=== PATIENT | male | born 1965 | race American Indian/Alaskan Native ===

== ENCOUNTER 2017-02-09 03:16 | Inpatient (IN) | payer MEDICAID, MEDICARE ==
[2017-02-09 03:16] VITALS: BMI 44.8
[2017-02-09 03:19] VITALS: O2SAT 98
--- NOTE | 2017-02-09 03:27 | ED PDOC ---
Psych Transfer Clearance - Clearance Statement Clearance Statement: Reviewed vital signs, lab results and transfer papers. Patient clinically stable for psychiatric admission.
[2017-02-09] MEDS ORDERED: DiphenhydrAMINE 50 mg/ml Inj IM PRN (03:56)
[2017-02-09] MEDS ORDERED: Alum-Mag Hydrox-Simethicone Susp (30 mL) PO PRN (03:56)
[2017-02-09] MEDS ORDERED: Magnesium Hydroxide Susp 30 ml UD PO PRN (03:56)
--- NOTE | 2017-02-09 12:04 | PCM.PSYCH ---
Initial Psychiatric Evaluation - Initial Psychiatric Evaluation Type of Admission: Voluntary Legal Status: Capacity Chief Complaint (in patient's own words): i got kicked out of my [facility] Patient's Reaction to Hospitalization: cooperative History of Present Illness and Precipitating Events: 51 yo male, history of cocaine dependence per chart (pt denies) pt states he is now homeless. states he has bipolar disorder. states he wanted to jump into traffic because he lost his housing. vague about why he lost the housing but admits he had an argument with staff there. he is now denying that he wants to harm himself. states he is anxious about his housing. states he used to see "a little green alien, but that went away." he denies recent drug use and his uds is negative. he is calm, sleeping in chair on the unit. he is more comfortable talking about past events and steers conversation to past events. focused on making sure his girlfriend knows he is in the hospital. states he was in longterm in [facility] for 4 months a few years ago for not paying child support. Current Medications: Active Medications Generic Name Dose Route Start Last Admin Trade Name Freq PRN Reason Stop Dose Admin Acetaminophen 650 mg 02/09/17 03:56 Tylenol 325mg Tab PO Q4 PRN headache,pain 1-7,dizziness Al Hydrox/Mg Hydrox/Simethicone 30 ml 02/09/17 03:56 Maalox Plus 30 Ml PO Q4 PRN Dyspepsia Diphenhydramine HCl 50 mg 02/09/17 03:56 Benadryl IM Q6 PRN Extrapyramidal S/S Unable PO Diphenhydramine HCl 50 mg 02/09/17 03:56 Benadryl PO Q6 PRN Extrapyramidal Symptoms Diphenhydramine HCl 50 mg 02/09/17 04:03 Benadryl PO HS PRN Sleep Haloperidol 5 mg 02/09/17 03:56 Haldol PO Q4 PRN Agitation Haloperidol Lactate 5 mg 02/09/17 03:56 Haldol IM Q4 PRN Agitation, Unable to Take PO Lorazepam 2 mg 02/09/17 03:56 Ativan IM Q4 PRN Anxiety/Agitation,Unable PO Lorazepam 2 mg 02/09/17 04:30 Ativan PO Q4 PRN agitation/anxiety Magnesium Hydroxide 30 ml 02/09/17 03:56 Milk Of Magnesia PO HS PRN Constipation states he takes celexa and buspar. states he does not take other medications. Past Psychiatric History - Past Psychiatric History Previous Treatment History: Inpatient Prior Professional Help: [facility] in october, reports being in [facility] , [facility], etc. Prior Psychiatric Treatment: states he does not like current treatment providers History of Abuse: denies History of ETOH/Drug Use: per chart hx of alcohol, cocaine dependence. uds negative. states he does not smoke cigarettes. denies recent alcohol use out side of 1 beer over a week ago. History of Family Illness: denies Pertinent Medical Hx (Current Medical&Sleep Prob, Allergies): Allergies Allergy/AdvReac Type Severity Reaction Status Date / Time No Known Allergies Allergy Verified 11/13/16 00:12 busPIRone [Buspar] 10 mg PO BID 10/13/16 Apixaban [Eliquis] 5 mg PO DAILY 11/10/16 Citalopram [celEXA] 20 mg PO DAILY #30 tab 11/19/16 obesity, htn, ?dvts Review of Systems - Psychiatric Psychiatric: As Per HPI Mental Status Examination - Personal Presentation Personal Presentation: Looks stated age, Obese - Affect Affect: Broad - Motor Activity Motor Activity: Calm - Reliability in Providing Information Reliability in Providing Information: Fair - Speech Speech: Organized, Irrelevant (gives irrelevant details) - Mood Mood: Anxious - Formal Thought Process Formal Thought Process: No Impairment - Obsessions/Compulsions Obsessions: No Compulsions: No - Cognitive Functions Orientation: Person, Place, Situation, Time Sensorium: Alert Attention/Concentration: Attentive Abstract Thinking: [place] Estimate of Intelligence: Average Judgement: Intact, as evidence by: Insight regarding need for hospitalization Memory: Recent intact, as evidence by: Ability to recall events of the day, Remote intact, as evidenced by: Abilit to recall sig. life events - Risk Risk: Suicidal (denies suicidal thoughts here), Diminished functioning - Strength & Assets Inventory Strength & Assets Inventory: Intelligence - Limitations Limitations: Other (housing) DSM 5 DX - DSM 5 DSM 5 Diagnosis: bipolar disorder, mixed history of cocaine abuse - Recommended/Plan of Treatment Treatment Recommendations and Plan of Treatment: admit to [facility] for safety and observation gather collateral information provide supportive therapy adjust medications- restart celexa and neurontin as he was taking these in october. hospitalist consult- regarding htn, obesity, ? dvts? disposition planning Projected ELOS: 3-5 days Prognosis: fair - Smoking Cessation Smoking Cessation Initiated: No Reason for not providing: does not smoke
--- NOTE | 2017-02-09 15:04 | CP.PCM.CON ---
History of Present Illness - History of Present Illness History of Present Illness: Hospitalist Consult H&P (Patient was seen and examined at 2:45 PM 02/09/17 [id number] with Psychiatry Nurse) 51 year old male who was admitted to the In-Patient Psychiatry Unit at [facility] for SI secondary to losing his housing and becoming homeless. Currently upon FULL ROS there is NO chest pain, NO palpitations, NO SOB/Cough/ Wheezing,NO dysphagia/odynophagia, NO abdominal pain, NO n/v/d/c, NO black/ bloody stools, NO burning/pain with urination, NO lightheadedness/dizziness, NO paresthesias, NO edema, NO new changes in vision/eye pain, NO new changes in hearing/ear pain PMHx: Cocaine Abuse, Bipolar Disorder, HTN PSHx: Denies ALL: Denies Meds: Please see list Social Hx: Homeless, (+) Tobacco: quit 7 years ago 15 cig/day, NO alcohol, Denies Illicit Drugs (patient has a history of Cocaine use as per records) Physical Exam: HEENT: NCA, EOMI, PERRLA, NO pharyngeal erythema/exudate, NO thyromegaly, NO cervical/supraclavicular/submandibular lymphadenopathy, Oral Mucosa and Nasal Turbinates are moist Cardio: NS1 and NS2, NO M/R/G Resp: CTA B/L, NO R/R/W GI: BSx4, Soft, NT,Central Obesity therefore Liver and Spleen could not be palpated, NO guarding/rebound tenderness Ext: Pulses are strong and equal, NO edema, Capillary Refill is 2 seconds Neuro: CN II through XII are grossly intact Assessment and Plan: 1). HTN Patient states he has a history of high blood pressure He is currently not on any medication Vitals show normal B/P Monitor for now 2). Suicide Ideation Treatment as per Psychiatry 3). Bipolar Disorder Treatment as per Psychiatry 4). Cocaine Abuse Treatment as per Psychiatry Past Patient History - Past Social History Smoking Status: Former Smoker - CARDIAC Hx Hypertension: Yes - PULMONARY Hx Tuberculosis: No - NEUROLOGICAL HX Cerebrovascular Accident: No Hx Seizures: No - HEENT Hx HEENT Problems: No - RENAL Hx Chronic Kidney Disease: No - ENDOCRINE/METABOLIC Hx Endocrine Disorders: No - HEMATOLOGICAL/ONCOLOGICAL Hx Cancer: No Hx Human Immunodeficiency Virus (HIV): No - INTEGUMENTARY Hx Dermatological Problems: No - MUSCULOSKELETAL/RHEUMATOLOGICAL Hx Musculoskeletal Disorders: No - GASTROINTESTINAL Hx Gastroesophageal Reflux: Yes - GENITOURINARY/GYNECOLOGICAL Hx Sexually Transmitted Disorders: No - PSYCHIATRIC Hx Depression: Yes Hx Substance Use: No - SURGICAL HISTORY Hx Surgeries: No - ANESTHESIA Hx Anesthesia: No Meds Allergies/Adverse Reactions: Allergies Allergy/AdvReac Type Severity Reaction Status Date / Time No Known Allergies Allergy Verified 11/13/16 00:12 - Medications Medications: Current Medications Acetaminophen (Tylenol 325mg Tab) 650 mg PO Q4 PRN PRN Reason: headache,pain 1-7,dizziness Al Hydrox/Mg Hydrox/Simethicone (Maalox Plus 30 Ml) 30 ml PO Q4 PRN PRN Reason: Dyspepsia Citalopram Hydrobromide (Celexa) 20 mg PO DAILY [facility] Last Admin: 02/09/17 12:54 Dose: 20 mg Diphenhydramine HCl (Benadryl) 50 mg IM Q6 PRN PRN Reason: Extrapyramidal S/S Unable PO Diphenhydramine HCl (Benadryl) 50 mg PO Q6 PRN PRN Reason: Extrapyramidal Symptoms Diphenhydramine HCl (Benadryl) 50 mg PO HS PRN PRN Reason: Sleep Gabapentin (Neurontin) 300 mg PO TID [facility] Last Admin: 02/09/17 12:54 Dose: 300 mg Haloperidol (Haldol) 5 mg PO Q4 PRN PRN Reason: Agitation Haloperidol Lactate (Haldol) 5 mg IM Q4 PRN PRN Reason: Agitation, Unable to Take PO Lorazepam (Ativan) 2 mg IM Q4 PRN PRN Reason: Anxiety/Agitation,Unable PO Lorazepam (Ativan) 2 mg PO Q4 PRN PRN Reason: agitation/anxiety Magnesium Hydroxide (Milk Of Magnesia) 30 ml PO HS PRN PRN Reason: Constipation Results - Vital Signs Recent Vital Signs: Last Vital Signs Temp 98 F 02/09/17 09:00 Pulse 74 02/09/17 09:00 Resp 20 02/09/17 09:00 BP 126/81 02/09/17 09:00 Pulse Ox 98 02/09/17 03:17
[2017-02-10 08:46] LABS: THYROID STIMULATING HORMONE 0.77 mIU/ML (0.46-4.68)
--- NOTE | 2017-02-10 11:38 | PCM.PYCHPN ---
Psychiatric Progress Note - Psychiatric Progress Note Patient seen today, length of contact: discussed with team Patient Chief Complaint: i am ok Problems Identified/Issues Discussed: no complaints of medication side effects. up in milieu. no agitation. no conflicts with peers. no episodes of panic. Medication Change: No Medical Record Reviewed: No Mental Status Examination - Cognitive Function Orientation: Person, Place, Situation, Time Memory: Intact Attention: WNL Concentration: WNL Association: WNL Fund of Knowledge: [facility] Decription of patient's judgement and insights: fair - Mood Mood: Anxious - Affect Affect: Broad - Speech Speech: Appropriate - Formal Thought Process Formal Thought Process: No Impairment Psychotic Thoughts and Behaviors: denies a/v hallucinations - Suicidal Ideation Suicidal Ideation: No - Homicidal Ideation Homicidal Ideation: No Goal/Treatment Plan - Goal/Treatment Plan Need for Continued Stay: Remain at risks for inpatient hospitalization, Severe functional impairment Progress Toward Problem(s) and Goals/Treatment Plan: depression moderate substance abuse history no medication changes t/c increasing neurontin if needed disposition planning- pt moves from hospital to hospital and has housing issues that seem to be beyond the scope of this hospitalization Estimated Date of D/C: 02/12/17
--- NOTE | 2017-02-11 11:56 | PCM.PYCHPN ---
Psychiatric Progress Note - Psychiatric Progress Note Patient seen today, length of contact: in treatment team Patient Chief Complaint: i feel ok Problems Identified/Issues Discussed: no complaints of medication side effects. social with peers. concerned with housing. states mood is improving. sleep is improved. Medication Change: No Medical Record Reviewed: No Mental Status Examination - Cognitive Function Orientation: Person, Place, Situation, Time Memory: Intact Attention: WNL Concentration: WNL Association: WNL Fund of Knowledge: [facility] Decription of patient's judgement and insights: fair - Mood Mood: Anxious - Affect Affect: Broad - Speech Speech: Appropriate - Formal Thought Process Formal Thought Process: No Impairment Psychotic Thoughts and Behaviors: denies a/v hallucinations - Suicidal Ideation Suicidal Ideation: No - Homicidal Ideation Homicidal Ideation: No Goal/Treatment Plan - Goal/Treatment Plan Need for Continued Stay: Remain at risks for inpatient hospitalization, Severe functional impairment Progress Toward Problem(s) and Goals/Treatment Plan: depression moderate substance abuse history no medication changes refer pt to [facility] services Estimated Date of D/C: 02/12/17
--- NOTE | 2017-02-12 10:47 | PCM.PYCHPN ---
Psychiatric Progress Note - Psychiatric Progress Note Patient seen today, length of contact: in treatment team Patient Chief Complaint: i am okay Problems Identified/Issues Discussed: no complaints of medication side effects. social with peers. concerned with housing. states mood is now better. sleep is improved. Medication Change: No Medical Record Reviewed: No Mental Status Examination - Cognitive Function Orientation: Person, Place, Situation, Time Memory: Intact Attention: WNL Concentration: WNL Association: WNL Fund of Knowledge: [facility] Decription of patient's judgement and insights: fair - Mood Mood: Anxious - Affect Affect: Broad - Speech Speech: Appropriate - Formal Thought Process Formal Thought Process: No Impairment Psychotic Thoughts and Behaviors: denies a/v hallucinations - Suicidal Ideation Suicidal Ideation: No - Homicidal Ideation Homicidal Ideation: No Goal/Treatment Plan - Goal/Treatment Plan Need for Continued Stay: Remain at risks for inpatient hospitalization, Severe functional impairment Progress Toward Problem(s) and Goals/Treatment Plan: depression moderate substance abuse history no medication changes refer pt to [facility] services Estimated Date of D/C: 02/12/17
--- NOTE | 2017-02-13 11:10 | PCM.PYCHPN ---
Psychiatric Progress Note - Psychiatric Progress Note Patient seen today, length of contact: discussed with team Patient Chief Complaint: i feel better Problems Identified/Issues Discussed: no complaints of medication side effects. social with peers. states he is no longer anxious. still focused on housing. no use of ativan. Medication Change: No Medical Record Reviewed: No Mental Status Examination - Cognitive Function Orientation: Person, Place, Situation, Time Memory: Intact Attention: WNL Concentration: WNL Association: WN Fund of Knowledge: [facility] Decription of patient's judgement and insights: fair - Mood Mood: Anxious - Affect Affect: Broad - Speech Speech: Appropriate - Formal Thought Process Formal Thought Process: No Impairment Psychotic Thoughts and Behaviors: denies a/v hallucinations - Suicidal Ideation Suicidal Ideation: No - Homicidal Ideation Homicidal Ideation: No Goal/Treatment Plan - Goal/Treatment Plan Need for Continued Stay: Remain at risks for inpatient hospitalization, Severe functional impairment Progress Toward Problem(s) and Goals/Treatment Plan: depression moderate substance abuse history no medication changes pt rejected by [facility] discharge tomorrow Estimated Date of D/C: 02/14/17
[2017-02-14 08:41] VITALS: BP 143/82; PULSE 84; RESP 18
[2017-02-14 09:20] VITALS: TEMP 97.7
--- NOTE | 2017-02-14 11:19 | PCM.PYCHDC ---
Mental Status Examination - Mental Status Examination Orientation: Person, Place, Situation, Time Memory: Intact Mood: Neutral Affect: Broad Speech: Appropriate Attention: WNL Concentration: WNL Association: WNL Fund of Knowledge: WNL Formal Thought Process: No Impairment Description of patient's judgement and insight: fair Psychotic Thoughts and Behaviors: denies a/v hallucinations Suicidal Ideation: No Current Homicidal Ideation?: No Plan: pt denies any suicidal or homicidal thoughts/plans or intention to harm self Discharge Summary - Discharge Note Reason for Hospitalization: pt was suicidal in context of losing housing. Psychiatric History (includes Medical, Family, Personal Hx): history of multiple recent hospitalizations Consultations:: List each consultation separately and include: 1. Reason for request. 2. Findings. 3. Follow-up Consultations: seen by the hospitalist Summary of Hospital Course include:: 1. Description of specific treatment plan utilized for patients during their course of treatmen. 2. Summarize the time- course for resolution of acute symptoms and/or regressed behaviors. 3. Describe issues identified and worked on during hospitalization. 4. Describe medication utilized. 5. Describe medical problems identified and treated. 6. Reassessment of suicide risk Summary of Hospital Course: 51 yo male, history of cocaine dependence per chart (pt denies) pt states he is now homeless. states he has bipolar disorder. states he wanted to jump into traffic because he lost his housing. vague about why he lost the housing but admits he had an argument with staff there. he is now denying that he wants to harm himself. states he is anxious about his housing. states he used to see "a little green alien, but that went away." he denies recent drug use and his uds is negative. he is calm, sleeping in chair on the unit. he is more comfortable talking about past events and steers conversation to past events. focused on making sure his girlfriend knows he is in the hospital. states he was in senior care in [facility] for 4 months a few years ago for not paying child support. hospital course pt was admitted to [facility] and oriented to the unit. pt was seen by the hospitalist. pt was seen by the treatment team. pt was started on his previous medications. he attended groups. he was social with peers. he was primarily seeking help with housing. he was referred to the [facility] program which rejected his application. pt was denying suicidal or homicidal thoughts at time of discharge. - Final Diagnosis (DSM 5) Condition upon Discharge: GOOD DSM 5: major depression, recurrent moderate Disposition: HOME/ ROUTINE Follow-up Treatment Plan: follow up with aftercare as directed take medications as prescribed do not use alcohol, tobacco or other illicit substances call 911 if any suicidal or homicidal thoughts Prescriptions/Medication Reconciliation: Citalopram [celEXA] 20 mg PO DAILY #30 tab Gabapentin [Neurontin] 300 mg PO TID #90 cap - Smoking Cessation Smoking Cessation Medication prescribed: No Reason for not providing: declined - Antipsychotic Medications Pt discharged on 2 or more routine antipsychotic medications: No
== END 2017-02-14 14:53 | disposition home or self-care (01) | DRG 885 ==
LOC: H.ER 03:16 → H.PSYCH 03:26
PROVIDERS: ADMIT Psychiatry & Neurology Psychiatry; ATTEND Psychiatry & Neurology Psychiatry
PROC: GZ51ZZZ Individual Psychotherapy, Behavioral (ICD-10-PCS; 2017-02-09)
PROC: GZHZZZZ Group Psychotherapy (ICD-10-PCS; principal; 2017-02-11)
DX: F33.1 Major depressive disorder, recurrent, moderate (principal); F31.60 Bipolar disorder, current episode mixed, unspecified; R45.851 Suicidal ideations; I10 Essential (primary) hypertension; F14.10 Cocaine abuse, uncomplicated; K21.9 Gastro-esophageal reflux disease without esophagitis; Z59.0 Homelessness; Z87.891 Personal history of nicotine dependence

== ENCOUNTER 2017-02-26 17:49 | Emergency (ER) | payer MEDICARE ==
[2017-02-26 17:50] VITALS: BMI 44.8
[2017-02-26 18:06] VITALS: BP 147/75; PULSE 95; RESP 16; TEMP 98; O2SAT 99
--- NOTE | 2017-02-26 18:32 | ED PDOC ---
HPI: Psych/Substance Abuse Time Seen by Provider: 02/26/17 18:30 Chief Complaint (Nursing): Psychiatric Evaluation Chief Complaint (Provider): CRISIS EVAL History Per: Patient (51 Y/O MALE UNDOMICILED HERE FOR EVALUATION OF HEARING VOICES. PATIENT STATES HE WAS ON CELEXA/BUSPAR BUT STOPPED X FEW MONTHS. DENIES ANY SI/HI. REQUEST ADMISSION FOR PSYCH EVAL. HAS STOPPED ELIQUIS FOR DVT AND NOTES SWELLING IN LOWER EXTREMITIES.) Past Medical History Reviewed: Historical Data, Nursing Documentation, Vital Signs Vital Signs: Last Vital Signs Temp 98.0 F 02/26/17 18:02 Pulse 95 H 02/26/17 18:02 Resp 16 02/26/17 18:02 BP 147/75 02/26/17 18:02 Pulse Ox 99 02/26/17 18:02 - Medical History PMH: Bipolar Disorder, Depression, HTN Denies: Diabetes, Hepatitis, HIV, Chronic Kidney Disease, Seizures, Sexually Transmitted Disease - Family History Family History: States: Unknown Family Hx - Immunization History Hx Tetanus Toxoid Vaccination: No Hx Influenza Vaccination: Yes Hx Pneumococcal Vaccination: No - Home Medications Home Medications: Ambulatory Orders Medication Instructions Recorded Citalopram [celEXA] 20 mg PO DAILY #30 tab 02/14/17 Gabapentin [Neurontin] 300 mg PO TID #90 cap 02/14/17 - Allergies Allergies/Adverse Reactions: Allergies Allergy/AdvReac Type Severity Reaction Status Date / Time No Known Allergies Allergy Verified 02/26/17 18:02 Review of Systems ROS Statement: Except As Marked, All Systems Reviewed And Found Negative Physical Exam - Reviewed Nursing Documentation Reviewed: Yes Vital Signs Reviewed: Yes - Physical Exam Appears: Positive for: Well, Non-toxic, No Acute Distress Head Exam: Positive for: ATRAUMATIC, NORMAL INSPECTION, NORMOCEPHALIC Skin: Positive for: Normal Color, Warm, DRY Eye Exam: Positive for: EOMI, Normal appearance, PERRL ENT: Positive for: Normal ENT Inspection Neck: Positive for: Normal, Painless ROM Cardiovascular/Chest: Positive for: Regular Rate, Rhythm Respiratory: Positive for: CNT, Normal Breath Sounds Gastrointestinal/Abdominal: Positive for: Normal Exam, Bowel Sounds, Soft Back: Positive for: Normal Inspection Extremity: Positive for: Normal ROM, Other (MILD SWELLING NOTED BILATERAL LOWER EXTREMITIES.) Neurologic/Psych: Positive for: Alert, Oriented - Laboratory Results Result Diagrams: 02/26/17 18:35 02/26/17 18:35 - ECG O2 Sat by Pulse Oximetry: 99 - Progress ED Course And Treament: ULTRASOUND LOWER EXTREMITY: BILATERAL POPLITEAL CYST; NO DVT NOTED. Disposition - Clinical Impression Clinical Impression: Hearing voices - Patient ED Disposition Is Patient to be Admitted: Transfer of Care - Disposition Disposition: Transfer of Care Disposition Time: 20:00 Condition: FAIR Patient Signed Over To: Lila Avalos Handoff Comments: CRISIS EVAL;
[2017-02-26 18:43] LABS: BASO # 0.2 K/uL (0.0-0.2); BASO % 1.8 % (0.0-2.0); EOS # 0.6 K/uL (0.0-0.7); EOS % 5.7 % (0.0-4.0); HEMATOCRIT 38.8 % (35.0-51.0); LYMPH # 3.1 K/uL (1.0-4.3); LYMPH % 27.5 % (20.0-40.0); MEAN CELL VOLUME 94.7 fl (80.0-94.0); MEAN CORPUSCULAR HEMOGLOBIN 30.8 pg (27.0-31.0); MEAN CORPUSCULAR HGB CONC 32.5 g/dL (33.0-37.0); MEAN PLATELET VOLUME 8.5 fl (7.2-11.7); MONO # 1.1 K/uL (0.0-0.8); MONO % 9.5 % (0.0-10.0); NEUT # 6.2 K/uL (1.8-7.0); NEUT % 55.5 % (50.0-75.0); RED CELL DISTRIBUTION WIDTH 13.7 % (11.5-14.5); WHITE BLOOD COUNT 11.2 K/uL (4.8-10.8)
[2017-02-26 18:56] LABS: ALB/GLOB RATIO 1.2 (1.0-2.1); ALCOHOL SERUM < 10 mg/dl (0-10); ALKALINE PHOSPHATASE 64 U/L (38-126); ALT/SGPT 31 U/L (21-72); AST/SGOT 22 U/L (17-59); BILIRUBIN,TOTAL 0.6 mg/dl (0.2-1.3); BLOOD UREA NITROGEN 21 mg/dl (9-20); CALCIUM 9.3 mg/dL (8.4-10.2); CARBON DIOXIDE 25 mmol/L (22-30); CHLORIDE 106 mmol/L (98-107); GFR AFRICAN-AMERICAN > 60; GLUCOSE,RANDOM 118 mg/dL (75-110); POTASSIUM 3.7 MMOL/L (3.6-5.0); SODIUM 143 mmol/l (132-148); TOTAL PROTEIN 8.2 G/DL (6.3-8.2)
[2017-02-26 18:58] LABS: PARTIAL THROMBOPLASTIN TIME 31.6 Seconds (25.6-37.1)
[2017-02-26 19:03] LABS: RBC URINE 2 /hpf (0-3); URINE BACTERIA RARE (<OCC); URINE BILIRUBIN NEGATIVE (NEGATIVE); URINE BLOOD NEGATIVE (NEGATIVE); URINE COLOR YELLOW (YELLOW); URINE GLUCOSE (UA) NEG (Normal); URINE KETONE NEGATIVE (NEGATIVE); URINE LEUKOCYTE ESTERASE NEG Leu/uL (Negative); URINE PROTEIN 30 mg/dL (NEGATIVE); WBC URINE 1 /hpf (0-5)
--- NOTE | 2017-02-26 19:46 | US ---
EXAM: US Duplex Bilateral Lower Extremity Veins CLINICAL HISTORY: 51 years old, male; Pain; Leg, lower; Bilateral; Additional info: R/O dvt TECHNIQUE: Real-time ultrasound scan of the veins of the bilateral lower extremities with color Doppler flow, spectral waveform analysis and compression. EXAM DATE/TIME: 02/26/2017 6:24 PM COMPARISON: There are no prior studies for comparison. FINDINGS: Right lower extremity: Common femoral, superficial femoral, popliteal and posterior tibial veins were evaluated. All veins examined are compressible. There are no intraluminal filling defects. There is expected blood flow on Doppler imaging. There is change in waveform with augmentation. There is a 4.3 x 2.1 x 2.2 cm right popliteal cyst Left lower extremity: Common femoral, superficial femoral, popliteal and posterior tibial veins were evaluated. All veins examined are compressible. There are no intraluminal filling defects. There is expected blood flow on Doppler imaging. There is change in waveform with augmentation. There is a 4.3 x 1 x 2.3 cm left popliteal cyst. Impression: No deep venous thrombosis in the visualized vascular segments of the lower extremities; bilateral popliteal cysts
--- NOTE | 2017-02-26 20:20 | ED PDOC ---
- Laboratory Results Result Diagrams: 02/26/17 18:35 02/26/17 18:35 - ECG O2 Sat by Pulse Oximetry: 99 - Progress ED Course And Treament: PT evaluated by crisis-and ready for d/c for depression under MD Pancho pt well and stable for d/c. Medical Decision Making Medical Decision Making: dx: depression and d.c under MD pancho Disposition - Clinical Impression Clinical Impression: Hearing voices, Depression - POA Present On Arrival: None - Disposition Referrals: FAMILY PROVIDER,NO [Primary Care Provider] - Disposition: Routine/Home Disposition Time: 20:20 Condition: FAIR Instructions: Depression (ED) Progress Note - Review of Symptoms General: No: Chills, Night Sweats, Fatigue, Malaise, Appetite, Other HEENT: No: Head Aches, Visual Changes, Eye Pain, Ear Pain, Dysphasia, Sinus Congestion, Post Nasal Drip, Sore Throat, Other
== END 2017-02-27 06:00 | disposition home or self-care (01) ==
LOC: H.ER 17:49
DX: R44.0 Auditory hallucinations (principal); M71.21 Synovial cyst of popliteal space [Baker], right knee; M71.22 Synovial cyst of popliteal space [Baker], left knee; F31.9 Bipolar disorder, unspecified; F41.9 Anxiety disorder, unspecified; I10 Essential (primary) hypertension
CPT/HCPCS: 80053; 81003; 85025; 85610; 85730; 93970; 99283; G0480

== ENCOUNTER 2017-04-20 08:22 | Emergency (ER) | payer MEDICAID, MEDICARE ==
[2017-04-20 08:22] VITALS: BMI 44.1
[2017-04-20 08:42] VITALS: BP 141/86; PULSE 90; RESP 18; TEMP 98; O2SAT 98
--- NOTE | 2017-04-20 09:05 | ED PDOC ---
HPI: Psych/Substance Abuse Time Seen by Provider: 04/20/17 08:33 Chief Complaint (Nursing): Psychiatric Evaluation Chief Complaint (Provider): Psychiatric Evaluation History Per: Patient History/Exam Limitations: no limitations Onset/Duration Of Symptoms: Days (x 1) Current Symptoms Are (Timing): Still Present Associated Symptoms: Depression, Suicidal Thoughts Additional Complaint(s): Dexter Matamoros is a 51 y/o male with a past medical history of depression who presents to the ED for crisis evaluation. Patient states having thoughts of helplessness, depression, and wanting to jump in the river. He is s/p orthopedic repair of right quadriceps tendon this past Saturday, for which his right leg is casted from ankle to thigh. Ambulating using a walker. Currently he is non-domiciled. Denies drug or alcohol use. Patient has previous psychiatric admissions. PMD: Unknown Past Medical History Reviewed: Historical Data, Nursing Documentation, Vital Signs Vital Signs: Last Vital Signs Temp 98 F 04/20/17 08:38 Pulse 90 04/20/17 08:38 Resp 18 04/20/17 08:38 BP 141/86 04/20/17 08:38 Pulse Ox 98 04/20/17 08:38 - Medical History PMH: Bipolar Disorder, Depression, HTN Denies: Diabetes, Hepatitis, HIV, Chronic Kidney Disease, Seizures, Sexually Transmitted Disease - Surgical History Surgical History: Appendectomy (March 16, 2017) Other surgeries: Right leg orthopedic surgery - Family History Family History: States: Unknown Family Hx - Social History Ex-Smoker (has not smoked in the last 12 months): Yes Alcohol: Occasional Drugs: Denies - Immunization History Hx Tetanus Toxoid Vaccination: No Hx Influenza Vaccination: Yes Hx Pneumococcal Vaccination: No - Home Medications Home Medications: Ambulatory Orders Medication Instructions Recorded Amoxicillin/Clavulanate [Augmentin 1 tab PO BID 04/06/17 875 MG-125 MG] oxyCODONE/Acetaminophen [Percocet 1 tab PO Q4H PRN 04/06/17 5/325 mg Tab] Citalopram [celEXA] 30 mg PO DAILY #14 tab 04/15/17 Gabapentin [Neurontin] 600 mg PO TID #14 tab 04/15/17 LORazepam [Ativan] 1 mg PO BID #14 tab 04/15/17 traZODone [Desyrel] 50 mg PO HS #14 tab 04/15/17 - Allergies Allergies/Adverse Reactions: Allergies Allergy/AdvReac Type Severity Reaction Status Date / Time banana Allergy VOMITING Verified 04/20/17 08:37 pear Allergy VOMITING Verified 04/20/17 08:37 Review of Systems ROS Statement: Except As Marked, All Systems Reviewed And Found Negative Psych: Positive for: Depression, Suicidal ideation (thoughts of jumping into river) Physical Exam - Reviewed Nursing Documentation Reviewed: Yes Vital Signs Reviewed: Yes - Physical Exam Appears: Positive for: Well (Obese, otherwise well appearing), Non-toxic, No Acute Distress Head Exam: Positive for: ATRAUMATIC, NORMAL INSPECTION, NORMOCEPHALIC Skin: Positive for: Normal Color, Warm, Dry Eye Exam: Positive for: EOMI, Normal appearance, PERRL Neck: Positive for: Normal, Painless ROM, Supple Cardiovascular/Chest: Positive for: Regular Rate, Rhythm. Negative for: Murmur Respiratory: Positive for: Normal Breath Sounds. Negative for: Respiratory Distress Gastrointestinal/Abdominal: Positive for: Normal Exam, Soft. Negative for: Tenderness Back: Positive for: Normal Inspection. Negative for: Vertebral Tenderness Extremity: Positive for: Other (Right leg is casted from mid-thigh to proximal ankle. Foot has good ROM, is pink and warm.) Neurologic/Psych: Positive for: Alert, Oriented, Mood/Affect (Flat), Other ( Insight is poor) - Laboratory Results Result Diagrams: 04/20/17 08:30 04/20/17 08:30 - ECG O2 Sat by Pulse Oximetry: 98 (RA) Pulse Ox Interpretation: Normal Medical Decision Making Medical Decision Making: Time: 08:43 Initial Impression: Crisis evaluation Initial Plan: --Blood work --Pending crisis evaluation Time: 13:50 Clinical Impression: Adjustment disorder, Bipolar disorder Upon provider reevaluation patient is medically stable, and requires no further treatment in the ED at this time. Patient will be discharged home. Counseling was provided and all questions were answered regarding diagnosis and resources for follow up at [facility] and [facility]. There is agreement to discharge plan. Return if symptoms persist or worsen. Scribe Attestation: Documented by Mercy Walsh, acting as a scribe for Kana Rothman III, DO Provider Scribe Attestation: All medical record entries made by the Scribe were at my direction and personally dictated by me. I have reviewed the chart and agree that the record accurately reflects my personal performance of the history, physical exam, medical decision making, and the department course for this patient. I have also personally directed, reviewed, and agree with the discharge instructions and disposition. Disposition - Clinical Impression Clinical Impression: Bipolar 1 disorder, Adjustment disorder - Patient ED Disposition Is Patient to be Admitted: No Doctor Will See Patient In The: Office Counseled Patient/Family Regarding: Diagnosis, Need For Followup - Disposition Referrals: [facility] [Outside] Disposition: Routine/Home Disposition Time: 11:15 Condition: STABLE Additional Instructions: Followup with your surgical team at [facility] for continuing care of your post- operative needs. FOR EMERGENCY HOUSING ASSISTANCE [facility] [address], [place] [phone] EXT, 330 FOR EMERGENCY PSYCHIATRIC ASSISTANCE FOLLOW UP WITH [facility] [address] [place] [address] FOR FINANCIAL ENTITLEMENTS FOLLOW UP WITH DEPARTMENT OF FAMILY SERVICES [address] [place] [address] Instructions: Depression (ED), Suicide Prevention for Adults (ED) Forms: [employer] (Bulgarian)
[2017-04-20 09:11] LABS: BASO # 0.1 K/uL (0.0-0.2); BASO % 0.9 % (0.0-2.0); EOS # 0.6 K/uL (0.0-0.7); EOS % 4.6 % (0.0-4.0); HEMATOCRIT 32.1 % (35.0-51.0); LYMPH # 2.8 K/uL (1.0-4.3); LYMPH % 22.3 % (20.0-40.0); MEAN CELL VOLUME 94.8 fl (80.0-94.0); MEAN CORPUSCULAR HEMOGLOBIN 30.7 pg (27.0-31.0); MEAN CORPUSCULAR HGB CONC 32.3 g/dL (33.0-37.0); MEAN PLATELET VOLUME 8.4 fl (7.2-11.7); MONO # 1.6 K/uL (0.0-0.8); MONO % 13.3 % (0.0-10.0); NEUT # 7.3 K/uL (1.8-7.0); NEUT % 58.9 % (50.0-75.0); RED CELL DISTRIBUTION WIDTH 14.2 % (11.5-14.5); WHITE BLOOD COUNT 12.4 K/uL (4.8-10.8)
[2017-04-20 09:18] LABS: ALCOHOL SERUM < 10 mg/dl (0-10); ALKALINE PHOSPHATASE 58 U/L (38-126); ALT/SGPT 16 U/L (21-72); AST/SGOT 24 U/L (17-59); BILIRUBIN,TOTAL 0.9 mg/dl (0.2-1.3); BLOOD UREA NITROGEN 24 mg/dl (9-20); CALCIUM 9.5 mg/dL (8.4-10.2); CARBON DIOXIDE 27 mmol/L (22-30); CHLORIDE 105 mmol/L (98-107); GFR AFRICAN-AMERICAN > 60; GLUCOSE,RANDOM 93 mg/dL (75-110); POTASSIUM 4.2 MMOL/L (3.6-5.0); SODIUM 143 mmol/l (132-148); TOTAL PROTEIN 7.6 G/DL (6.3-8.2)
[2017-04-20 13:28] LABS: RBC URINE 3 /hpf (0-3); URINE BACTERIA RARE (<OCC); URINE BILIRUBIN NEGATIVE (NEGATIVE); URINE BLOOD NEGATIVE (NEGATIVE); URINE COLOR YELLOW (YELLOW); URINE GLUCOSE (UA) NEG (Normal); URINE KETONE TRACE mg/dL (NEGATIVE); URINE LEUKOCYTE ESTERASE NEG Leu/uL (Negative); URINE PROTEIN NEGATIVE (NEGATIVE)
[2017-04-20 13:30] LABS: WBC URINE 4 /hpf (0-5)
== END 2017-04-20 12:30 | disposition home or self-care (01) ==
LOC: H.ER 08:22
DX: F33.8 Other recurrent depressive disorders (principal); R45.851 Suicidal ideations; F31.9 Bipolar disorder, unspecified; F43.20 Adjustment disorder, unspecified
CPT/HCPCS: 80053; 81003; 85025; 99283; G0480

== ENCOUNTER 2017-05-13 02:07 | Observation (INO) | payer MEDICARE ==
[2017-05-13 02:07] VITALS: BMI 44.1
[2017-05-13 02:26] VITALS: BP 139/72; PULSE 94; RESP 20; TEMP 98; O2SAT 98
--- NOTE | 2017-05-13 03:09 | ED PDOC ---
HPI: General Adult Time Seen by Provider: 05/13/17 02:28 Chief Complaint (Nursing): Abdominal Pain Chief Complaint (Provider): abdominal pain History Per: Patient History/Exam Limitations: no limitations Additional Complaint(s): 51yo M in ED for eval of epigastric pain. according to EMS pt was seen at [facility] for similar complaints. PT is homeless, and shelters have closed for the night. PT in ER sleeping comfortably without any medical complaints. Past Medical History Reviewed: Historical Data, Nursing Documentation, Vital Signs Vital Signs: Last Vital Signs Temp 98.0 F 05/13/17 02:18 Pulse 94 H 05/13/17 02:18 Resp 20 05/13/17 02:18 BP 139/72 05/13/17 02:18 Pulse Ox 98 05/13/17 05:18 - Medical History PMH: Bipolar Disorder, Depression, HTN Denies: Diabetes, Hepatitis, HIV, Chronic Kidney Disease, Seizures, Sexually Transmitted Disease - Surgical History Surgical History: Appendectomy (March 16, 2017) - Family History Family History: States: Unknown Family Hx - Immunization History Hx Tetanus Toxoid Vaccination: No Hx Influenza Vaccination: Yes Hx Pneumococcal Vaccination: No - Home Medications Home Medications: Ambulatory Orders Medication Instructions Recorded Amoxicillin/Clavulanate [Augmentin 1 tab PO BID 04/06/17 875 MG-125 MG] oxyCODONE/Acetaminophen [Percocet 1 tab PO Q4H PRN 04/06/17 5/325 mg Tab] Citalopram [celEXA] 30 mg PO DAILY #14 tab 04/15/17 Gabapentin [Neurontin] 600 mg PO TID #14 tab 04/15/17 LORazepam [Ativan] 1 mg PO BID #14 tab 04/15/17 traZODone [Desyrel] 50 mg PO HS #14 tab 04/15/17 - Allergies Allergies/Adverse Reactions: Allergies Allergy/AdvReac Type Severity Reaction Status Date / Time banana Allergy VOMITING Verified 04/20/17 08:37 pear Allergy VOMITING Verified 04/20/17 08:37 Review of Systems ROS Statement: Except As Marked, All Systems Reviewed And Found Negative Cardiovascular: Negative for: Chest Pain Respiratory: Negative for: Shortness of Breath Gastrointestinal: Negative for: Nausea, Vomiting, Abdominal Pain Psych: Negative for: Depression Physical Exam - Reviewed Nursing Documentation Reviewed: Yes Vital Signs Reviewed: Yes - Physical Exam Appears: Positive for: Well, Non-toxic, No Acute Distress Skin: Positive for: Normal Color, Warm, DRY Cardiovascular/Chest: Positive for: Regular Rate, Rhythm Respiratory: Positive for: CNT, Normal Breath Sounds Gastrointestinal/Abdominal: Positive for: Normal Exam, Bowel Sounds, Soft. Negative for: Tenderness Extremity: Positive for: Normal ROM, Pedal Edema (right knee immobilizer noted. ) Neurologic/Psych: Positive for: Alert, Oriented - ECG O2 Sat by Pulse Oximetry: 98 - Progress ED Course And Treament: pt allowed to rest in ED. stable Medical Decision Making Medical Decision Making: pt stable for d/c Disposition - Clinical Impression Clinical Impression: Abdominal pain - Patient ED Disposition Is Patient to be Admitted: No - Disposition Referrals: Giles Isidro MD [Primary Care Provider] - Disposition: Routine/Home Disposition Time: 05:18 Condition: STABLE Instructions: Gas and Bloating (ED), Abdominal Pain (ED) Forms: [email or web address] (Persian)
== END 2017-05-13 06:04 | disposition home or self-care (01) ==
LOC: H.ER 02:07 → H.EROBSV 03:11 → H.ER 06:05
PROVIDERS: ADMIT Emergency Medicine; ATTEND Emergency Medicine
DX: R10.13 Epigastric pain (principal); F31.9 Bipolar disorder, unspecified; I10 Essential (primary) hypertension; F32.9 Major depressive disorder, single episode, unspecified; Z59.0 Homelessness; Z79.899 Other long term (current) drug therapy; Z87.891 Personal history of nicotine dependence
CPT/HCPCS: 99284; G0378

== ENCOUNTER 2017-05-15 14:19 | Emergency (ER) | payer MEDICARE ==
[2017-05-15 14:20] VITALS: BMI 44.1
[2017-05-15 14:31] VITALS: BP 115/67; PULSE 96; RESP 16; TEMP 98.6; O2SAT 96
--- NOTE | 2017-05-15 15:54 | ED PDOC ---
Lower Extremity Pain/Injury Time Seen by Provider: 05/15/17 14:31 Chief Complaint (Nursing): Lower Extremity Problem/Injury Chief Complaint (Provider): Left lower extremity rash History Per: Patient History/Exam Limitations: no limitations Onset/Duration Of Symptoms: Days (x3) Current Symptoms Are (Timing): Still Present Additional Complaint(s): Dexter is a 51 y/o male who presents to the ED complaining of a non-pruritic non-painful rash to the left leg, bilateral forearms, abdomen, and right side of lower back. Reports on Saturday of last week he had a cast removed from the right leg, s/p patellar tendon rupture repair. He denies fever, numbness, and tingling. PMD: Dr. Giles Isidro Past Medical History Reviewed: Historical Data, Nursing Documentation, Vital Signs Vital Signs: Last Vital Signs Temp 98.6 F 05/15/17 14:27 Pulse 96 H 05/15/17 14:27 Resp 16 05/15/17 14:27 BP 115/67 05/15/17 14:27 Pulse Ox 96 05/15/17 14:27 - Medical History PMH: Bipolar Disorder, Depression, HTN Denies: Diabetes, Hepatitis, HIV, Chronic Kidney Disease, Seizures, Sexually Transmitted Disease - Surgical History Surgical History: Appendectomy (March 16, 2017) Other surgeries: Right patellar tendon rupture repair - Family History Family History: States: Unknown Family Hx - Social History Ex-Smoker (has not smoked in the last 12 months): Yes Alcohol: Social Drugs: Denies - Immunization History Hx Tetanus Toxoid Vaccination: No Hx Influenza Vaccination: Yes Hx Pneumococcal Vaccination: No - Home Medications Home Medications: Ambulatory Orders Medication Instructions Recorded Amoxicillin/Clavulanate [Augmentin 1 tab PO BID 04/06/17 875 MG-125 MG] oxyCODONE/Acetaminophen [Percocet 1 tab PO Q4H PRN 04/06/17 5/325 mg Tab] Citalopram [celEXA] 30 mg PO DAILY #14 tab 04/15/17 Gabapentin [Neurontin] 600 mg PO TID #14 tab 04/15/17 LORazepam [Ativan] 1 mg PO BID #14 tab 04/15/17 traZODone [Desyrel] 50 mg PO HS #14 tab 04/15/17 Clindamycin 2% 1 applic TOP BID #1 tube 05/15/17 - Allergies Allergies/Adverse Reactions: Allergies Allergy/AdvReac Type Severity Reaction Status Date / Time banana Allergy VOMITING Verified 05/15/17 14:27 pear Allergy VOMITING Verified 05/15/17 14:27 Review of Systems ROS Statement: Except As Marked, All Systems Reviewed And Found Negative Constitutional: Negative for: Fever, Chills Skin: Positive for: Rash Neurological: Negative for: Numbness (or tingling) Physical Exam - Reviewed Nursing Documentation Reviewed: Yes Vital Signs Reviewed: Yes - Physical Exam Appears: Positive for: Non-toxic, No Acute Distress Head Exam: Positive for: ATRAUMATIC, NORMAL INSPECTION, NORMOCEPHALIC Skin: Positive for: Warm, Dry, Rash (Scattered erythematous papules with some vesicles, but no crusting, on the entire left lower extremity, bilateral forearms, right lower flank, and periumbilical area) Eye Exam: Positive for: EOMI, Normal appearance, PERRL Neck: Positive for: Normal, Painless ROM, Supple Extremity: Positive for: Other (Healing surgical wound, no lesions on right lower extremity. Healing ulcer noted on right heel.) Neurologic/Psych: Positive for: Alert, Oriented. Negative for: Motor/Sensory Deficits - Laboratory Results Result Diagrams: 05/15/17 15:57 05/15/17 15:57 - ECG O2 Sat by Pulse Oximetry: 96 (RA) Pulse Ox Interpretation: Normal Medical Decision Making Medical Decision Making: Finger stick was 106 Time: 15:46 Initial Plan: --pt. evaluated by Dr. Rothman and if platelets are WNL pt. can be dc'd with clindamycin gel. --Ordered blood work Clinical Impression: Rash Upon provider reevaluation patient is medically stable, and requires no further treatment in the ED at this time. Patient will be discharged home with Rx for Clindamycin 2% cream. Counseling was provided and all questions were answered regarding diagnosis and need for follow up with PMD. There is agreement to discharge plan. Return if symptoms persist or worsen. Scribe Attestation: Documented by Mercy Walsh, acting as a scribe for Pankaj Rod PA-C Provider Scribe Attestation: All medical record entries made by the Scribe were at my direction and personally dictated by me. I have reviewed the chart and agree that the record accurately reflects my personal performance of the history, physical exam, medical decision making, and the department course for this patient. I have also personally directed, reviewed, and agree with the discharge instructions and disposition. Disposition - Clinical Impression Clinical Impression: Rash - Patient ED Disposition Is Patient to be Admitted: No Counseled Patient/Family Regarding: Studies Performed, Diagnosis, Need For Followup, Rx Given - Disposition Referrals: [facility] [Outside] Disposition: Routine/Home Disposition Time: 17:01 Condition: STABLE Prescriptions: Clindamycin 2% 1 applic TOP BID #1 tube Instructions: Acute Rash (ED) Forms: [employer] (Belarusian)
[2017-05-15 16:18] LABS: BASO % 0.6 % (0.0-2.0); EOS # 0.9 K/uL (0.0-0.7); EOS % 10.6 % (0.0-4.0); HEMATOCRIT 37.2 % (35.0-51.0); LYMPH # 2.6 K/uL (1.0-4.3); MEAN CELL VOLUME 94.2 fl (80.0-94.0); MEAN CORPUSCULAR HEMOGLOBIN 30.3 pg (27.0-31.0); MEAN CORPUSCULAR HGB CONC 32.2 g/dL (33.0-37.0); MEAN PLATELET VOLUME 8.1 fl (7.2-11.7); MONO # 0.7 K/uL (0.0-0.8); MONO % 8.5 % (0.0-10.0); NEUT % 48.3 % (50.0-75.0); RED CELL DISTRIBUTION WIDTH 13.9 % (11.5-14.5); WHITE BLOOD COUNT 8.3 K/uL (4.8-10.8)
[2017-05-15 16:24] LABS: ALKALINE PHOSPHATASE 57 U/L (38-126); ALT/SGPT 22 U/L (21-72); AST/SGOT 18 U/L (17-59); BILIRUBIN,TOTAL 0.5 mg/dl (0.2-1.3); BLOOD UREA NITROGEN 18 mg/dl (9-20); CALCIUM 9.2 mg/dL (8.4-10.2); CARBON DIOXIDE 28 mmol/L (22-30); CHLORIDE 104 mmol/L (98-107); GFR AFRICAN-AMERICAN > 60; GLUCOSE,RANDOM 100 mg/dL (75-110); POTASSIUM 4.2 MMOL/L (3.6-5.0); SODIUM 145 mmol/l (132-148); TOTAL PROTEIN 7.7 G/DL (6.3-8.2)
== END 2017-05-15 17:53 | disposition home or self-care (01) ==
LOC: H.ER 14:19
DX: R21 Rash and other nonspecific skin eruption (principal); F31.9 Bipolar disorder, unspecified; I10 Essential (primary) hypertension